=== PATIENT | female | born 2000 | race Two or more races ===

== ENCOUNTER 2024-11-02 09:19 | Emergency (ER) | payer OTHER ==
[~2024-11-02] VITALS: Ht 162.6 cm; Wt 72.6 kg
[2024-11-02] MEDS: morPHINE 2 MG SYG IVP ONE (10:12)
[2024-11-02] MEDS: ondanSETRON 4MG INJ IVP ONE (10:12)
[2024-11-02 10:21] LABS: BASOPHILS # (AUTO) 0.03 K/uL (0.00-0.20); BASOPHILS % (AUTO) 0.3 % (0.0-5.0); HEMATOCRIT 38.5 % (36-48); IMMATURE GRANULOCYTE ABSOLUTE 0.04 K/uL (0-1); LYMPHOCYTES % (AUTO) 9.7 % (21.0-51.0); MEAN CORPUSCULAR HEMOGLOBIN 27.1 pg (27.0-33.0); MEAN CORPUSCULAR HGB CONC 32.7 g/dL (32.0-36.0); MEAN CORPUSCULAR VOLUME 82.8 fL (79-99); MONOCYTES # (AUTO) 0.5 K/uL (0.1-1.0); MONOCYTES % (AUTO) 5.2 % (3.0-13.0); NEUTROPHILS # (AUTO) 8.3 K/uL (1.8-7.7); NEUTROPHILS % (AUTO) 83.4 % (40.0-77.0); PLATELET COUNT (AUTO) 280 K/uL (130-400); RED BLOOD CELL COUNT(AUTO) 4.65 MIL/uL (4.00-5.50); RED CELL DISTRIBUTION WIDTH 14.5 % (11.0-15.5); WHITE BLOOD COUNT (AUTO) 9.9 K/uL (4.8-10.8)
[2024-11-02 10:30] LABS: CREATININE 0.7 mg/dL (0.5-1.0)
--- NOTE | 2024-11-02 11:01 | ERN ---
ED Note History of Present Illness Stated Complaint: VAGINAL BLEEDING Chief Complaint: Vaginal Problems/Bleeding Time Seen by MD: 09:26 Dictation: This is a 24-year-old female who presented to the emergency room from her work with complaints of severe lower abdominal pain and menstrual cramping associated with nausea vomitings diarrhea that started yesterday and got worse today. She reported that she has a regular menstrual cycles and she began experiencing pain yesterday and when she attempted to use the restroom. Apparently she felt extremely dizzy and felt like she was going to pass out basically slid herself onto the floor. She stated that the pain was so intense in her lower abdomen that she lost consciousness but does not remember how long. She denied having any clots. She denied being Temperature 97.7 pulse 69 respirations 16 blood pressure 119/77 with a pulse oximetry of 99% on room air Allergies: Coded Allergies: ibuprofen (Unverified Allergy, Unknown, 11/02/24) Past Medical History Past Medical History: No Pertinent History Surgical History: Tonsillectomy Family History: Negative Social History: Negative LMP: Nov 02, 2024 RN Note Reviewed/Agreed w/PFSH: Yes Review of System Dictation Constitutional: Negative for fever,chills, and weight loss Eyes: Negative for injury, pain,redness, and discharge ENT: Negative for injury,pain or swelling Cardiovascular: Negative for chest pain, palpitations, and edema Respiratory: Negative for shortness of breath, cough, and wheezing, Abdomen/GI: Negative for abdominal pain, nausea, vomiting, diarrhea, and constipation Back: Negative for injury and pain : Negative for injury, vaginal bleeding severe lower abdominal menstrual cram ps MS/Extremity: Negative for injury and deformity Skin: Negative for rash, and discoloration Neuro: Negative for headache, weakness, numbness, tingling, and seizure Psych: Negative for suicide ideation, homicidal ideation, and hallucinations Initial Vital Sign VS Vital Signs Date Time Temp Pulse Resp B/P (MAP) Pulse Ox O2 Delivery O2 Flow Rate FiO2 11/02/24 09:21 97.7 69 16 119/77 99 0 11/02/24 09:27 Room Air* 21 Physical Exam Dictation General: awake, alert, NAD Head/Face: Normocephalic, atraumatic Eyes: PERRL, EOMI, vision at baseline ENT: oral cavity clear, TMs clear, no signs of infection Neck: Trachea midline, supple, no nuchal rigidity Cardiovascular: RRR, normal S1/S2, No MRGs, no JVD Respiratory: CTAB, no respiratory distress, No rales or wheezes Abdomen: Soft, mild tenderness in the hypogastric and lower abdomen, non- distended, normal bowel sounds, no guarding or rebound. Skin: Warm, dry, normal turgor, no rash MS/Extremity: Pulses equal, no cyanosis, neurovascular intact, FROM Neuro: COAx4, GCS 15, strength 5/5, CN 2-12 intact, normal cerebellar exam, normal gait, Psych: Normal behavior, mood, and affect normal Extremities-trace edema without any palpable cords, Homans sign is negative Results (Laboratory/Radiology) Laboratory/Radiology Laboratory Tests Test 11/02/24 10:09 White Blood Count 9.9 K/uL (4.8-10.8) Red Blood Count 4.65 MIL/uL (4.00-5.50) Hemoglobin 12.6 g/dL (12.0-16.0) Hematocrit 38.5 % (36-48) Mean Corpuscular Volume 82.8 fL (79-99) Mean Corpuscular Hemoglobin 27.1 pg (27.0-33.0) Mean Corpuscular Hemoglobin Concent 32.7 g/dL (32.0-36.0) Red Cell Distribution Width 14.5 % (11.0-15.5) Platelet Count 280 K/uL (130-400) Mean Platelet Volume 10.7 fL (7.5-10.5) H Immature Granulocyte % (Auto) 0.4 % (0-1) Neutrophils (%) (Auto) 83.4 % (40.0-77.0) H Lymphocytes (%) (Auto) 9.7 % (21.0-51.0) L Monocytes (%) (Auto) 5.2 % (3.0-13.0) Eosinophils (%) (Auto) 1.0 % (0.0-8.0) Basophils (%) (Auto) 0.3 % (0.0-5.0) Neutrophils # (Auto) 8.3 K/uL (1.8-7.7) H Lymphocytes # (Auto) 1.0 K/uL (1.0-4.8) Monocytes # (Auto) 0.5 K/uL (0.1-1.0) Eosinophils # (Auto) 0.10 K/uL (0.00-0.70) Basophils # (Auto) 0.03 K/uL (0.00-0.20) Absolute Immature Granulocyte (auto 0.04 K/uL (0-1) Nucleated Red Blood Cells 0.0 % (0.0-0.19) White Cell Morphology Comment See comments Sodium Level 140 mmol/L (136-145) Potassium Level 4.0 mmol/L (3.5-5.1) Chloride Level 108 mmol/L (101-111) Carbon Dioxide Level 24 mmol/L (21-32) Blood Urea Nitrogen 8 mg/dL (7-18) Creatinine 0.7 mg/dL (0.5-1.0) Glomerular Filtration Rate Calc 125 mL/min (>90) Random Glucose 84 mg/dL (70-105) Total Calcium 8.9 mg/dL (8.5-10.1) Serum Test, Qualitative NEGATIVE (NEGATIVE) Labs Reviewed?: Yes ED Course ED Course Orders Procedure Category Date Status Time Cbc With Differential LAB 11/02/24 Complete 09:58 Basic Metabolic Panel LAB 11/02/24 Complete 09:58 Testing, LAB 11/02/24 Complete Serum Hcg 09:58 Morphine 2mg Syg PHA 11/02/24 Complete (Morphine 2mg Syg) 10:00 Ondansetron 4mg Inj PHA 11/02/24 Complete (Zofran 4mg Inj) 10:00 Us Pelvic Non-Ob Comp US 11/02/24 Resulted 10:55 Current Medications Medications (Trade) Dose Ordered Sig/Varun Route PRN Reason Start Time Stop Time Status Last Admin Dose Admin Morphine Sulfate (morPHINE 2MG SYG) 2 mg ONCE ONCE IVP 11/02/24 10:00 11/02/24 10:01 DC 11/02/24 10:12 Ondansetron HCl (zoFRAN 4MG INJ) 4 mg ONCE ONCE IVP 11/02/24 10:00 11/02/24 10:01 DC 11/02/24 10:12 Vital Signs Date Time Temp Pulse Resp B/P (MAP) Pulse Ox O2 Delivery O2 Flow Rate FiO2 11/02/24 11:20 97.7 104 16 96/55 99 Room Air* 0 21 11/02/24 09:27 97.7 69 16 119/77 99 Room Air* 0 21 11/02/24 09:21 97.7 69 16 119/77 99 0 We will perform diagnostic labs, advanced imaging and administer medications according to the patient's complaint. Once the results are available, will review and personally interpreted the labs to rule out any acute life- threatening emergency the trach require immediate intervention and treatment. I will then re-evaluate the patient after treatment and diagnostic exams have return to determine whether the patient requires any further testing, can safely be discharged home or need further admission to hospital for additional treatment and evaluation. Labs reviewed CBC BNP 7 with a normal limits urine test is negative. 12:47 p.m. ultrasound of the pelvis-unremarkable for any uterine abnormality or ovarian torsion 1:00 p.m. I updated the patient and her mother on pelvic ultrasound findings and clinically she feels better this may just simply be worse her calves during this monthly cycle and she was satisfied I answered all her questions discharge to follow up with her primary care physician Medical Decision Making MDM The differential diagnosis entertained at this time includes-worsening menstrual cramps, ruptured ovarian cyst, endometriosis, ectopic , with threat of A full comprehensive workup will be performed to identify the underlying problem. The patient will be monitored closely throughout the emergency department stay. The disposition will depend on the workup results and frequent re-evaluations Problem List Problem List: (1) Severe menstrual cramps (2) Abdominal discomfort, bilateral lower quadrant DX & DISP Disposition: Discharge Departure Impression: Primary Impression: Severe menstrual cramps Additional Impression: Abdominal discomfort, bilateral lower quadrant Condition: Stable Additional Instructions: Patient and the caregiver have been informed of all the diagnostic tests and the imaging conducted during the today's visit to the emergency room and has verbalized understanding of the results I have personally reviewed and int erpreted all diagnostic exams performed here in the ER today as well as the vital signs documented by the nursing staff. The patient is now being discharged to home and should follow up with the primary care physician or the specialist as directed by the ER staff. Follow-up with primary care provider in 1 to 2 days. Take medications as directed here in the emergency room. Okay to continue home medications unless otherwise discussed during your visit in the emergency room today. Return to your nearest emergency room if symptoms worsen or if there is no improvement. Call 911 if you need immediate assistance. Take Tylenol or Motrin [id number] as needed and if no contraindications are present. Increase oral hydration. A wound culture or urine culture was ordered here in the emergency room department please follow-up with primary care provider and advise them to get repeat ports from our facility. If you had any Madi wrap/splints that were applied here, please do not remove them until you see your primary care or specialty. Referrals: SELF,REFERRAL (PCP) RENE RODRIGUES MD Nov 02, 2024 11:01
--- NOTE | 2024-11-02 12:28 | HMCIMG ---
Exam Type: US PELVIC NON-OB COMP Clinical Information: severe lower abdominal pain menstrual cramps. Comparison: None Findings: The uterus is normal in size and echogenicity. The endometrial lining is normal in thickness. No intrauterine or ectopic seen. The ovaries are normal in size and echogenicity. Vascular Doppler flow exam and spectral analysis of waveforms analysis is unremarkable bilaterally. There is preserved vascularity to both ovaries on Doppler evaluation. Specifically, there is no evidence of ovarian torsion. No free fluid is noted throughout the cul-de-sac. There are no adnexal abnormalities. No other significant abnormalities are seen. No fluid collections or masses or free fluid are identified in the pelvis. Impression: NORMAL EXAM. No evidence of uterine pathology. No evidence of adnexal abnormalities or ovarian torsion. No intrauterine or ectopic seen.
[2024-11-02 13:35] VITALS: BP 103/58; PULSE 99; RESP 16; TEMP 98.3; O2SAT 100
--- NOTE | 2024-11-02 13:46 | NUR ---
PT STABLE AAOX4 NO DISTRESS, VITALS WNL NO C/O PAIN NOW, PT GIVEN INSTRUCTION FOR HOME, IV REMOVED CATHETER INTACT. PT HAS NO NEW MEDICATIONS NOW. PT WALKED TO ED LOBBY, DRIVEN HOME BY MOTHER.
== END 2024-11-02 13:46 | disposition home or self-care (01) ==
LOC: EDH 09:19
DX: N94.6 Dysmenorrhea, unspecified (principal); R10.31 Right lower quadrant pain; R10.32 Left lower quadrant pain; Z88.6 Allergy status to analgesic agent; Z90.89 Acquired absence of other organs
CPT/HCPCS: 99285; 96374; 76856; 96375; 80048; 84703; 85025; 36415; J2270; J2405